=== PATIENT | female | born 1985 | race Asian ===

== ENCOUNTER 2016-09-18 06:05 | Inpatient (IN) | payer MEDICAID ==
[~2016-09-18] VITALS: Ht 157.5 cm; Wt 59.0 kg
[2016-09-18] MEDS ORDERED: LACTATED RINGERS 1,000 ML IV SCH (06:31)
[2016-09-18] MEDS ORDERED: OXYTOCIN 20 UNITS/LR PREMIX 1,000 ML IV SCH (06:35)
[2016-09-18] MEDS ORDERED: BUPIVACAINE 0.125%/NS PREMIX 250 ML ONE (06:42)
[2016-09-18] MEDS ORDERED: NALBUPHINE HYDROCHLORIDE 10 MG/ML VIAL ONE (06:53)
[2016-09-18] MEDS ORDERED: PROMETHAZINE 25 MG/ML VIAL ONE (06:53)
--- NOTE | 2016-09-18 06:53 | NUR ---
PATIENT HAS BEEN SCREENED AND CATEGORIZED LOW NUTRITION RISK. PATIENT WILL BE SEEN WITHIN 7 DAYS OF ADMISSION. 09/26/15 CHAVEZ JEFFERS MS, RDN
[2016-09-18] MEDS ORDERED: OXYTOCIN 10 UNITS/ML VIAL IM SCH (07:00)
[2016-09-18 07:08] LABS: BASOPHILS # (AUTO) 0.2 K/uL (0.00-0.22); BASOPHILS % (AUTO) 1.6 % (0.0-2.0); EOSINOPHILS # (AUTO) 0.1 K/uL (0-0.4); EOSINOPHILS % (AUTO) 1.2 % (0.0-4.0); HEMATOCRIT 38.5 % (36-48); HEMOGLOBIN 12.7 g/dL (12.0-16.0); LYMPHOCYTES % (AUTO) 18.8 % (20.5-51.1); MEAN CORPUSCULAR HEMOGLOBIN 29 pg (27-31); MEAN CORPUSCULAR HGB CONC 33 g/dL (33-37); MEAN CORPUSCULAR VOLUME 87 fL (80-94); MONOCYTES # (AUTO) 0.3 K/uL (0.8-1.0); MONOCYTES % (AUTO) 3.3 % (1.7-9.3); NEUTROPHILS # (AUTO) 7.9 K/uL (1.8-7.7); NEUTROPHILS % (AUTO) 75.1 % (42.2-75.2); PLATELET COUNT (AUTO) 221 K/uL (140-450); RED BLOOD CELL COUNT(AUTO) 4.41 MIL/uL (4.20-5.40); RED CELL DISTRIBUTION WIDTH 11.9 % (11.6-13.7); WHITE BLOOD COUNT (AUTO) 10.5 K/uL (4.8-10.8)
[2016-09-18] MEDS ORDERED: NALBUPHINE 10 MG/ML AMP IVP PRN ×2 (07:10→07:15)
[2016-09-18] MEDS ORDERED: PROMETHAZINE 25 MG/ML VIAL IVP PRN ×2 (07:10→07:15)
[2016-09-18] MEDS ORDERED: LIDOCAINE 1% 500 MG/50 ML VIAL INJ ONE (07:15)
[2016-09-18 07:49] LABS: HIV RAPID SCREEN NON-REACTIVE (NON REACTIV)
[2016-09-18 08:00] VITALS: BP 128/72
[2016-09-18] MEDS ORDERED: LIDOCAINE 1% 50 ML ONE (08:14)
[2016-09-18] MEDS ORDERED: OXYTOCIN 10 UNITS/ML VIAL ONE (08:14)
[2016-09-18] MEDS ORDERED: OXYTOCIN 20 UNITS/LR PREMIX 1,000 ML IV ONE (08:16)
[2016-09-18] MEDS ORDERED: NALOXONE 0.4 MG/ML VIAL ONE (08:18)
[2016-09-18 10:57] LABS: RAPID PLASMA REAGIN NON-REACTIVE (Non Reactiv)
[2016-09-18] MEDS ORDERED: MEASLES, MUMPS, AND RUBELLA 1 VIAL SQVAC PRN (15:40)
[2016-09-18] MEDS ORDERED: TEMAZEPAM 15 MG CAP PO PRN (15:40)
[2016-09-18] MEDS ORDERED: WITCH HAZEL 40 PAD PACKAGE TP PRN (15:40)
[2016-09-18] MEDS ORDERED: METHYLERGONOVINE 0.2 MG/ML AMP IM PRN (15:40)
[2016-09-18] MEDS ORDERED: IBUPROFEN 800 MG TAB PO PRN (15:40)
[2016-09-18] MEDS ORDERED: OXYTOCIN 10 UNITS/ML VIAL IM PRN (15:40)
[2016-09-18] MEDS ORDERED: BENZOCAINE/MENTHOL 20%-0.5% 60 GM CAN TP PRN (15:40)
[2016-09-18] MEDS ORDERED: DOCUSATE SOD/SENNA 50/8.6 MG 1 TAB PO SCH (21:00)
[2016-09-19 06:45] LABS: HEMATOCRIT 36.2 % (36-48)
[2016-09-20] MEDS: HYDROcodone/APAP 5/325 MG 1 TAB TAB PO PRN ×2 (01:37→07:43)
[2016-09-20] MEDS ORDERED: IBUP-1842 PO (08:03)
[2016-09-20] MEDS ORDERED: BISA-213 RC (10:03)
[2016-09-20] MEDS: oxyCODONE/APAP 5/325 MG 1 TAB TAB PO PRN ×2 (12:20→16:27)
== END 2016-09-20 17:30 | disposition home or self-care (01) | DRG 560 ==
LOC: MFCC 06:05
PROVIDERS: ADMIT Obstetrics & Gynecology; ATTEND Obstetrics & Gynecology
PROC: 10D07Z6 Extraction of Products of Conception, Vacuum, Via Natural or Artificial Opening (ICD-10-PCS; principal; 2016-09-18)
PROC: 0W8NXZZ Division of Female Perineum, External Approach (ICD-10-PCS; 2016-09-18)
DX: O42.913 Preterm premature rupture of membranes, unspecified as to length of time between rupture and onset of labor, third trimester (principal); O69.1XX0 Labor and delivery complicated by cord around neck, with compression, not applicable or unspecified; Z3A.36 36 weeks gestation of pregnancy; Z37.0 Single live birth; Z28.21 Immunization not carried out because of patient refusal
CPT/HCPCS: 36415; 85018; 85025; 86592; 86886; 86900; 86901; J2001; J2300; J2310; J2550; J2590; J3490